=== PATIENT | male | born 1930 | race Caucasian/White ===

== ENCOUNTER 2016-06-08 08:49 | Outpatient (CLI) | payer MEDICARE ==
[2016-06-08 16:39] LABS: #Basophils 0.1 thou/uL (0.0-0.2); #Eosinphils 0.3 thou/uL (0.0-0.7); #Lymphocytes 1.6 thou/uL (1.20-3.40); #Monocytes 0.5 thou/uL (0.11-0.59); #Neutrophils 3.1 thou/uL (1.40-6.50); %Basophils 1.4 % (0.0-1.0); %Eosinophils 5.4 % (0.0-10.0); %Lymphocytes 28.6 % (21.0-51.0); %Monocytes 9.6 % (0.0-10.0); %Neutrophils 55.1 % (42.0-75.0); Hemoglobin 13.1 g/dL (14.0-18.0); Mean Corpuscular HGB CONC 34.3 g/dL (32.0-36.0); Mean Corpuscular Hemoglobin 33.2 pg (27.0-31.0); Mean Corpuscular Volume 96.8 fl (80.0-94.0); Mean Platelet Volume 8.7 fL (7.4-10.4); Platelet Count 237 thou/uL (130-400); RBC Distribution Width 10.5 % (11.5-14.5); Red Blood Cell (RBC) Count 3.93 mill/uL (4.70-6.10); White Blood Cell (WBC) Count 5.6 thou/uL (4.8-10.8)
[2016-06-08 16:53] LABS: ALT (SGPT) 13 U/L (0-55); AST (SGOT) 20 U/L (5-34); Alkaline Phosphatase 37 U/L (40-150); Anion Gap 10 mmol/L (10-20); BUN (Urea Nitrogen) 17 mg/dL (8.4-25.7); Bilirubin, Total 0.7 mg/dL (0.2-1.2); Calc. Creatinine Clearance 0 mL/min (70-130); Calcium 8.7 mg/dL (7.8-10.44); Carbon Dioxide 26 mmol/L (23-31); Cardiac Risk 2.5 (Less than 4.5); Chloride 101 mmol/L (98-107); Cholesterol 129 mg/dL (< 200 Desired); Estimated GFR-MDRD 73; Globulin 2.5 g/dL (2.4-3.5); Glucose 101 mg/dL (83-110); HDL Cholesterol 52 mg/dL (>60 Neg Risk); LDL Cholesterol, Calculated 66 mg/dL; Potassium 4.4 mmol/L (3.5-5.1); Protein, Total 6.5 g/dL (5.8-8.1); Sodium 133 mmol/L (136-145); Triglycerides 53 mg/dL (Less than 150)
[2016-06-08 16:58] LABS: Free T4 (Free Thyroxine) 0.86 ng/dL (0.70-1.48); Thyroid Stimulating Hormone 12.4403 uIU/mL (0.35-4.94)
[2016-06-08 17:02] LABS: Hemoglobin A1c 5.2 % (4.0-6.0)
[2016-06-08 17:40] LABS: Iron 110 ug/dL (65-175); Iron Binding Capacity, Total 296 mcg/dL (261-462)
[2016-06-08 17:51] LABS: Creatinine, Urine 147.46 mg/dL (63-166); Microalbumin Urine 1.6 mg/dL (0.5-50.0); Microalbumin/Creat Ratio 10.9 mg/g (Less than 30)
== END 2016-06-08 08:50 ==
LOC: LABLEX 08:49
PROVIDERS: ATTEND Family Medicine
DX: E78.5 Hyperlipidemia, unspecified (principal); E03.9 Hypothyroidism, unspecified; E87.1 Hypo-osmolality and hyponatremia; D64.9 Anemia, unspecified; I10 Essential (primary) hypertension; E11.9 Type 2 diabetes mellitus without complications; R09.89 Other specified symptoms and signs involving the circulatory and respiratory systems
CPT/HCPCS: 80053; 80061; 82043; 83036; 83540; 83550; 84439; 84443; 85025

== ENCOUNTER 2016-08-04 11:22 | Outpatient (CLI) | payer MEDICARE ==
[2016-08-04 16:46] LABS: Sodium 137 mmol/L (136-145)
== END 2016-08-04 11:23 | disposition home or self-care (01) ==
LOC: LABLEX 11:22
PROVIDERS: ATTEND Family Medicine
DX: E03.9 Hypothyroidism, unspecified (principal); E87.1 Hypo-osmolality and hyponatremia
CPT/HCPCS: 84295; 84443